=== PATIENT | male | born 1965 | race Caucasian/White ===

== ENCOUNTER → 2016-05-10 | Outpatient (CLI) | payer BC ==
[~2016-05-10] MED LIST: ADVAIR DIS1 PUFF/DO2 IH; AFRIN15 ML NS; COLACE-DPS100 MG PO; CORTEF DPS5 MG PO; CORTEF10 MG PO; NORCO 5-325 TA1 EACH PO; OCEAN NASAL MIS45 ML NS; PROTONIX40 MG PO; PROVENTIL HFA6.7 GM IH; SYNTHROID DP0.075 MG PO; TEARS NATURAL D15 ML OU; TUMS DPS500 MG PO; VITAMIN D-32000 UNI1 PO; ZOCOR DPS10 MG PO
== END | disposition home or self-care (01) ==
LOC: PTH.S 10:11
DX: Z01.812 Encounter for preprocedural laboratory examination (principal); D49.7 Neoplasm of unspecified behavior of endocrine glands and other parts of nervous system

== ENCOUNTER → 2016-05-14 | Outpatient (CLI) | payer BC | END | disposition home or self-care (01) | LOC: RAD.S 13:52 | DX: D49.7 Neoplasm of unspecified behavior of endocrine glands and other parts of nervous system (principal); E23.6 Other disorders of pituitary gland ==

== ENCOUNTER 2016-05-15 05:41 | Inpatient (IN) | payer BC ==
[~2016-05-15] VITALS: Ht 175.3 cm; Wt 87.4 kg
--- NOTE | ~2016-05-15 | DS ---
ADMIT: 05/15/2016 RM/LOC: 304 [facility] MR#: [id number] [facility]#: [id number] 2620 [facility] [address] [id number] CHANDRAKANT URENA [address] [place] [address] Discharge Summary SEX: M AGE: 50 : 1965 ADMISSION DATE: 05/15/2016 DISCHARGE DATE: 05/17/2016 SERVICE: Neurosurgery. REASON FOR ADMISSION: Pituitary tumor. PROCEDURE: Transnasal transsphenoidal resection of a pituitary. HOSPITAL COURSE: Mr. Urena tolerated his procedure well. Postoperatively, he was taken to the intensive care unit for close monitoring and care. He did work with speech therapy, physical therapy and occupational therapy. Dr. Cummins with [facility] was consulted for co-management of his comorbidities. Postop day #1 he was awake and alert. He was afebrile, and his vital signs were stable. He was moving all extremities x4 with 5/5 strength. He denied a headache or visual disturbances. He denied metallic taste in his mouth. His nasal mustache was patent with a scant amount of old serosanguineous drainage. His arterial line was discontinued. That afternoon, he was transferred out of the intensive care unit to the med/surg floor. He worked with physical therapy, occupational therapy, and speech therapy and tolerated this quite well. Postop day #2 his Is and Os were even. He had no drainage from his nostrils or in his mouth. His dressing was clean, dry, and intact. His Chatman catheter was discontinued. He was urinating, ambulating, and defecating per his norm and was requesting discharge home. DISCHARGE CONDITION: Good. DISCHARGE MEDICATIONS: 1. Colace 100 mg p.o. b.i.d. 2. Cortef 5 mg p.o. q.p.m. 3. Cortef 10 mg p.o. daily. 4. Lansoprazole 30 mg daily. 5. Afrin two sprays to each nares b.i.d. 6. Hydrocodone 5/325 one p.o. q.4 hours p.r.n. 7. Natural tears one drop OU p.r.n. 8. Cecil nasal spray, one spray in each nostril p.r.n. 9. Simvastatin 10 mg q.p.m. 10.Levothyroxine 75 mcg daily. 11.Vitamin D3 4000 units q.p.m. 12.Ventolin inhaler two puffs q.4 hours p.r.n. 13.Advair 500/50 two puffs b.i.d. 14.Tums 1000 mg p.r.n. DISCHARGE INSTRUCTIONS: (Per Dr. Giron) He can have a regular diet. He may shower, he should not take any tub baths, he should keep the water out of his nose. He should not cough, he should not use straws, he should not smoke, he should not do any sucking, and he should not blow his nose. He should not ADMIT: 05/15/2016 RM/LOC: 304 [facility] MR#: [id number] [address] [address] CHANDRAKANT URENA [address] [place] [address] Discharge Summary SEX: M AGE: 50 : 1965 [address] until he is seen in clinic. He should leave his packing in his nose. He will call with any questions or concerns including neurological worsening, signs or symptoms of infection, or any other issues. FOLLOWUP: He will follow up with Dr. Adam in clinic on Friday or Friday to take his packing out. He will follow up with Dr. Giron in clinic in 2 weeks. DISPOSITION: He was discharged home. Total [id number] time for the discharge planning and care coordination was 30 minutes. Leigh Hill APRN / Jey Giron MD / sue JOB #: [id number] CC: Jey Giron MD, Attending Physician Nikhil Cummins MD, Family Physician
[2016-05-17] MEDS ORDERED: VITAMIN D-32000 UNI1 PO (20:36)
[2016-05-17] MEDS ORDERED: ZOCOR DPS10 MG PO (20:36)
[2016-05-17] MEDS ORDERED: ADVAIR DIS1 PUFF/DO2 IH (20:37)
[2016-05-17] MEDS ORDERED: SYNTHROID DP0.075 MG PO (20:37)
[2016-05-17] MEDS ORDERED: TUMS DPS500 MG PO (20:37)
[2016-05-17] MEDS ORDERED: PROVENTIL HFA6.7 GM IH (20:37)
[2016-05-17] MEDS ORDERED: PROTONIX40 MG PO (20:38)
[2016-05-17] MEDS ORDERED: CORTEF10 MG PO (20:38)
[2016-05-17] MEDS ORDERED: CORTEF DPS5 MG PO (20:38)
[2016-05-17] MEDS ORDERED: COLACE-DPS100 MG PO (20:38)
[2016-05-17] MEDS ORDERED: TEARS NATURAL D15 ML OU (20:39)
[2016-05-17] MEDS ORDERED: OCEAN NASAL MIS45 ML NS (20:39)
[2016-05-17] MEDS ORDERED: AFRIN15 ML NS (20:39)
[2016-05-17] MEDS ORDERED: NORCO 5-325 TA1 EACH PO (20:40)
--- NOTE | 2016-05-20 08:32 | OR ---
ADMIT: 05/15/2016 RM/LOC: 304 [facility] MR#: [id number] [address] [address] CHANDRAK[address] TOTH [address] [place] [address] Operative/Delivery Room Report SEX: M AGE: 50 : 1965 SURGERY DATE: 05/15/2016 SURGEON: Jey Giron MD PREOPERATIVE DIAGNOSIS: Pituitary macroadenoma. POSTOPERATIVE DIAGNOSIS: Pituitary macroadenoma. PROCEDURE: Transnasal, transsphenoidal approach for microsurgical and endoscopic resection of pituitary tumor with brain lab stereotaxi. A separate incision for harvest of abdominal fat for packing of the sphenoid sinus. RESIDENT ASSISTANT CNA: Leigh Hill APRN. CO-SURGEON: Shekhar Adam MD. Please see Dr. Adam's discussion for the entrance and closure of the case. DESCRIPTION OF PROCEDURE: After gaining informed consent, the patient was taken to the operative theater and placed under general endotracheal anesthesia in supine position. His head was tilted very gently toward his right in Almeida ramos. His calvarium was then co-registered with BrainLAB software. He was prepped and draped in usual sterile fashion. A time-out was utilized to ascertain the correct site and side of surgery as well as other pertinent patient historical information. Counts were obtained at beginning and end of the case with no change betwixt 2. Antibiotic were given within [address] Adam endoscopically entered the sphenoid sinus revealing a very beautiful wide exposure as well as anterior and posterior cephalad and caudad exposure of the posterior wall of sphenoid sinus. At this point, I utilized the BrainLAB software and was able to visualize and ascertain the carotid tubercles. There was a dehiscence portion of the sinus and at this point, utilizing microscopy with microsurgical dissection technique from this point on throughout the case, I resected the posterior wall of the sphenoid sinus very cautiously. I entered the dura utilizing sharp dissection. Some necrotic-appearing fluid drained out and then subsequently some pale white tumor was encountered. The duration of the case was spent very cautiously resecting this cephalad and caudally, at depth as well as on each side laterally utilizing extreme caution not to damage the carotid arteries. I was able to resect a what appeared to be a significant amount of tumor. There was no more of a whitish appearing cells at the end of the resection, both cephalad as well as posteriorly. There was some beefy red appearing, possibly normal pituitary gland. Dissection was stopped when this was encountered. I did continue on laterally deep and inferiorly taking time throughout the case to utilize stereotactic system for evaluation of the position within the sella. There was pulsatility in the beefy red appearing, questionably normal pituitary from the superior and this had come down into the sella quite nicely. At the time that this occurred, there was apparent was a small amount of probable CSF leakage, but this did not persist. At this point, there did ADMIT: 05/15/2016 RM/LOC: 304 [facility] MR#: [id number] [address] [address] [address]AN[address] TOTH [address] [place] [address] Operative/Delivery Room Report SEX: M AGE: 50 : 1965 not appear to be further resectable tumor and attention and attention was turned to gaining pristine hemostasis with various coagulating agents which were then removed from the sella. At this time, there was no further sign of any CSF leak. The area that appeared to be widely decompressed including likely the optic apparatus because of the way that he could see the superior aspect of the tumor, come down into the field prior to resecting the remainder of the tumor. At this point, attention was then turned to closure. The Medipore plate was trimmed to allow for appropriate sized and placed re- creating the posterior wall of the sphenoid. Tisseel was then placed, and then attention was turned to the right. A periumbilical region incision was then fashioned and adipose tissue was removed. Pristine hemostasis was obtained and this was closed with subcuticular 3-0 Stratafix and fat was then brought into the field and used to pack into the sphenoid sinus then packing further other than placing further Tisseel. The case was then turned back over to Dr. Adam for nasal packing. Ms. Hill assisted with suction and visualization throughout the case. COMPLICATIONS: None. ESTIMATED BLOOD LOSS: Charted. SPECIMEN: Sellar tissue. DISPOSITION: Extubated and taken to postanesthesia care unit moving all 4 extremities. Jey Giron MD/ sukumar JOB #: [id number] CC: Jey Giron, Attending Physician Nikhil Cummins, Family Physician
--- NOTE | 2016-05-23 07:58 | OR ---
ADMIT: 05/15/2016 RM/LOC: 304 [facility] MR#: [id number] [address] [address] JANEY CHANDRAKANT Alex [address] [place] [address] Operative/Delivery Room Report SEX: M AGE: 50 : 1965 SURGERY DATE: 05/15/2016 SURGEON: Shekhar Adam MD PREOPERATIVE DIAGNOSIS: Pituitary adenoma. POSTOPERATIVE DIAGNOSIS: Pituitary adenoma. OPERATION: Transnasal transsphenoidal hypophysectomy. ANESTHESIA: General oral endotracheal. COMMENT: My portion of the operative procedure is to gain access to the sphenoid sinus and sella turcica, and following Dr. Jey Giron's surgical removal of the abnormal pituitary gland, the nose was then closed with packing. DESCRIPTION OF PROCEDURE: With the patient in supine position and positioned appropriately for Dr. Jey Giron's neurosurgical procedure, his nose was examined with a nasal speculum. Nasal turbinates were treated with topical Afrin on cottonoid pledgets allowing reduction of turbinate edema. The nasal septum was near midline. The left nasal cavity was patent, as was the right, that shows the left nasal cavity to access the sphenoid sinus. As his left sphenoid sinus had larger cell than that of the right, there was an inter- sinus septum that extended to the right and the sella turcica could be exposed more easily using the left naris and left sphenoid os. The inferior middle turbinates were outfractured with Alsip elevator and the nasal speculum used to gain access to the sphenoethmoid recess. The tissues of the middle turbinate, posterior septum, and sphenoethmoid recess were infiltrated with Xylocaine with epinephrine 1:100,000 with 0-degree endoscope. The natural os of the sphenoid sinus was identified. The os was then enlarged using Kerrison rongeur and suction shaver 4.0 mm cutting blade. This allowed good visualization of the intra-sinus contents. The os was enlarged by dissection medially, inferiorly, and superiorly exposing the sella turcica. Kerrison Bojorquez were used to dissect the bony tissues and suction shaver used to trim the soft tissues gaining good access and visualization. During the procedure, bleeding was controlled with use of topical Afrin and injection of Xylocaine with epinephrine, and following the sphenoid antrostomy, there was no active bleeding. Self-retaining nasal speculum was then placed. The case was then turned to Dr. Jey Giron for his neurosurgical portion to remove the pituitary adenoma. Following Dr. Giron's completion and packing of the sphenoid sinus with abdominal fat, his left naris was then closed by use of packing. Yu Bland ADMIT: 05/15/2016 RM/LOC: 304 [facility] MR#: [id number] [address] [address] CHAN[address] TOTH [address] [place] [address] Operative/Delivery Room Report SEX: M AGE: 50 : 1965 pledget was placed in the sphenoethmoid recess. Two pledgets were used to stent the surgically created antrostomy. Telfa was then scrolled and one pledget placed in the superior nasal cavity. The middle turbinate was then medialized and a Gelfoam pledget was placed lateral to the middle turbinate. The remainder of the nasal cavity was packed from anterior to posterior choana with a scrolled Telfa packing which allowed closure of the nasal cavity from anterior to posterior choana. This pack was sutured to the columella with 3-0 Prolene and the operation was completed. His eyes were examined and found to have equal pupils. There was no proptosis. Oropharynx appeared clear. No evidence of active bleed or active CSF drainage. He emerged from general anesthesia in the operating room, was extubated in the operating room, and transferred to the recovery room in good condition. Shekhar Adam MD/ sukumar JOB #: [id number] CC: Jey Giron MD, Attending Physician Nikhil Cummins MD, Family Physician
--- NOTE | 2016-05-27 08:52 | CO ---
ADMIT: 05/15/2016 RM/LOC: 304 [facility] MR#: [id number] [address] [address] [address] TOTH [address] [place] [address] Consultation SEX: M AGE: 50 : 1965 DATE OF CONSULTATION: 05/15/2016 ATTENDING PHYSICIAN: Jey Giron CONSULTING PHYSICIAN: Nikhil Cummins MD REASON FOR CONSULT: Medical comanagement. HISTORY OF PRESENT ILLNESS: Jamie is a very pleasant, 50-year-old, white male, who presented to the [facility] today for an elective pituitary mass resection with Dr. Jey Giron. At the time of admission, he was in his usual state of health. At that time of my consultation with him, he was seen postoperatively in the ICU. He was awake, alert, feeling well. He was having minimal pain. He had a little nausea postoperatively but even that is improving. He seems to be doing well postoperatively. PAST MEDICAL HISTORY: Remarkable for: 1. Mild intermittent asthma. 2. Obstructive sleep apnea with CPAP use. 3. Hypertriglyceridemia. 4. Obesity. 5. Known pituitary mass. 6. Allergic rhinitis. 7. Vitamin D deficiency. 8. Secondary hypothyroidism. 9. Secondary hypogonadism. PAST SURGICAL HISTORY: 1. He has had arthroscopy of the shoulder in July 2012. 2. Pituitary mass resection on 05/15/2016. MEDICATIONS: The outpatient medications that I show him on at the time of admission: 1. Depo testosterone 200 mg every 2 weeks. 2. Vitamin D3 2000 units one tab daily. 3. Zocor 10 mg daily. 4. Ventolin HFA two puffs every 4 hours as needed for cough and wheeze. 5. Advair 250/50 one puff twice daily. 6. I do also believe he may be on some thyroid medication but I do not show that in his med list currently. ALLERGIES: ALLERGIC TO PENICILLIN, ASPIRIN CAUSES SHORTNESS OF BREATH, MUSCLE RELAXERS CAUSE SHORTNESS OF BREATH. SOCIAL HISTORY: He is a former smoker, quit in 2006. He denies any alcohol use. He denies any drug use. He is an [id number] hi low truck driver. He is and his , Felecia, is with him at the time of my visit with him today. ADMIT: 05/15/2016 RM/LOC: 304 [facility] MR#: [id number] [address] [address] [address]AN[address] TOTH [address] [place] [address] Consultation SEX: M AGE: 50 : 1965 REVIEW OF SYSTEMS: As per HPI. All others were reviewed and negative. FAMILY HISTORY: Noncontributory. PHYSICAL EXAMINATION: VITAL SIGNS: Blood pressure is 126/70, pulse 73, respirations 20, temp 98.0, O2 saturation is 93% on room air. GENERAL: He is awake, alert, upright in the ICU bed, pleasant and appropriate and conversant. HEENT: He has a wound bandage along the right temporal region and sphenoidal region of his skull. He also has packing and a nasal mask on. NECK: Supple. No lymphadenopathy. HEART: Regular rate and rhythm. No murmurs, gallops, or rubs. LUNGS: Fine rales particularly in the right lower lobe. Otherwise, no rhonchi, rales, or wheezes noted. HEART: Regular rate and rhythm. No murmurs, gallops, or rubs. ABDOMEN: Obese, soft, nontender, nondistended. No rebound, guarding, or masses. He does have a small dressing noted on the right lateral aspect of his abdominal wall. EXTREMITIES: SCDs are in place. LABORATORY AND X-RAY DATA: An A1c was 6.1. Ionized calcium is 1.04. CMP without clinically significant abnormalities. INR 1.06. CBC without clinically significant abnormalities. ASSESSMENT: 1. Pituitary mass, status post resection. 2. Secondary hypothyroidism. 3. Secondary hypogonadism. 4. Mild intermittent asthma. 5. Allergic rhinitis. 6. Vitamin D deficiency. 7. Obstructive sleep apnea. 8. Hypertriglyceridemia. PLAN: Plan will be to ensure that he has appropriate pulmonary toilet and we will also make sure that he has CPAP at night provided if this is okay with Dr. Giron. We will follow along. Thank you very much for the consult. Nikhil Cummins MD/ sukumar JOB #: [id number] CC: Jey Giron, Attending Physician Nikhil Cummins, Family Physician
== END 2016-05-17 11:55 | disposition home or self-care (01) | DRG 624 ==
LOC: WOR 05:41 → 3ICU 05:41
PROVIDERS: ADMIT Neurological Surgery
PROC: 0GB00ZZ Excision of Pituitary Gland, Open Approach (ICD-10-PCS; principal; 2016-05-15)
PROC: 0JB80ZZ Excision of Abdomen Subcutaneous Tissue and Fascia, Open Approach (ICD-10-PCS; principal; 2016-05-15)
PROC: 8E09XBZ Computer Assisted Procedure of Head and Neck Region (ICD-10-PCS; principal; 2016-05-15)
PROC: 09Q Ear, Nose, Sinus, Repair (ICD-10-PCS; principal; 2016-05-15)
PROC: 09Q Ear, Nose, Sinus, Repair (ICD-10-PCS; principal; 2016-05-15)
DX: D35.2 Benign neoplasm of pituitary gland (principal); E55.9 Vitamin D deficiency, unspecified; J45.20 Mild intermittent asthma, uncomplicated; G47.33 Obstructive sleep apnea (adult) (pediatric); E78.1 Pure hyperglyceridemia; E66.9 Obesity, unspecified; Z68.31 Body mass index [BMI] 31.0-31.9, adult; E03.9 Hypothyroidism, unspecified; E29.1 Testicular hypofunction; Z87.891 Personal history of nicotine dependence